=== PATIENT | female | born 1985 | race African-American/Black ===

== ENCOUNTER 2019-02-23 16:20 | Emergency (ER) | payer MEDICAID ==
[~2019-02-23] VITALS: Ht 157.5 cm; Wt 122.5 kg
--- NOTE | 2019-02-23 16:31 | NUR ---
PATIENT AMBULATED TO BED #8
[2019-02-23 16:35] VITALS: BP 145/79
--- NOTE | 2019-02-23 16:43 | NUR ---
Dr. Cottrell evaluating patient at bedside.
[2019-02-23] MEDS ORDERED: ONDANSETRON 4 MG ODT PO ONE (16:50)
[2019-02-23] MEDS ORDERED: MORPHINE SULFATE 2 MG/ML SYR IM ONE (16:50)
--- NOTE | 2019-02-23 17:00 | NUR ---
C/O SUDDEN ONSET OF MIGRAINE X YESTERDAY POUNDING PAIN RADIATING FROM HEAD TO LOWER SPINE----WORSEN WITH ANY MOVEMENTS +NAUSEA, SENSITIVE TO NOISE PT DESCRIBES SIMILAR SYMPTOMS LAST YR DENIES RECENT INJURY, DENIES FEVER, OR COLD SYMPTOMS HX--MIGRAINE, ASTHMA RX---SINGULAIR, ADVAIR, ALBUTEROL DENIES V/D; SKIN IS PINK/WARM/DRY; AAOX4 WITH EVEN AND STEADY GAIT; LUNGS CLEAR BL; HR EVEN AND REGULAR; PT DENIES ANY FEVER, CP, SOB, OR COUGH AT THIS TIME; PATIENT STATES PAIN OF 7/10 AT THIS TIME; VSS; PATIENT POSITIONED FOR COMFORT; HOB ELEVATED; BEDRAILS UP X2; BED DOWN. ER MD MADE AWARE OF PT STATUS.
[2019-02-23] MEDS ORDERED: fentaNYL 0.05 MG/ML VIAL IVP ONE (18:00)
[2019-02-23] MEDS ORDERED: NACL 0.9% 500 ML IV ONE (18:00)
[2019-02-23] MEDS ORDERED: diphenhydrAMINE 50 MG/ML VIAL IVP ONE ×2 (18:05→20:45)
--- NOTE | 2019-02-23 18:55 | NUR ---
RECHECKED PT, PT STATED HER HEADACHE GETTING RELIEVED AFTER FENTANYL GIVEN. BUT PAIN CAME BACK 10 MINUTES LATER.
--- NOTE | 2019-02-23 19:10 | NUR ---
ENDORSED PT TO PM NURSE.
--- NOTE | 2019-02-23 19:10 | NUR ---
RECEIVED FROM REPORT FROM LESLY ARSHAD. TRANSFER OF CARE AT THIS TIME.
--- NOTE | 2019-02-23 19:58 | NUR ---
PT AMBULATED 150 FT. STEADY GAIT. PT STATED, " I FEEL FINE, NOT DIZZY WHEN I WALK". BP 135/82 AND HR 89.
[2019-02-23] MEDS ORDERED: KETOROLAC 15 MG/ML VIAL IVP ONE (20:20)
[2019-02-23] MEDS ORDERED: METOCLOPRAMIDE 10 MG/2 ML INJ VIAL IVP ONE (20:20)
--- NOTE | 2019-02-23 20:43 | NUR ---
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
[2019-02-23 21:00] VITALS: BP 128/84
--- NOTE | 2019-02-23 21:00 | NUR ---
Patient discharged with v/s stable. Written and verbal after care instructions given and explained. Patient alert, oriented and verbalized understanding of instructions. Ambulatory with steady gait. All questions addressed prior to discharge. ID band removed. Patient advised to follow up with PMD. Rx of MOTRIN, TRAMADOL, AND ZOFRAN given. Patient educated on indication of medication including possible reaction and side effects. Opportunity to ask questions provided and answered.
== END 2019-02-23 21:00 | disposition home or self-care (01) ==
LOC: MED 16:20
DX: G44.89 Other headache syndrome (principal); Z88.1 Allergy status to other antibiotic agents
CPT/HCPCS: 70450; 72125; 81002; 81025; 96372; 96374; 96375; 96376; 99284; J1200; J1885; J2270; J2765; J3010; J7030; Q0162